=== PATIENT | male | born 1990 | race Caucasian/White ===

== ENCOUNTER 2017-02-20 23:30 | Emergency (ER) | payer BC ==
[~2017-02-20 23:30] MED LIST: NO MEDICATIONS; NORFLEX100 M1 PO
== END 2017-02-21 00:39 | disposition home or self-care (01) ==
LOC: SED 23:30
DX: S83.91XA Sprain of unspecified site of right knee, initial encounter (principal); W50.2XXA Accidental twist by another person, initial encounter; Y92.830 Public park as the place of occurrence of the external cause
CPT/HCPCS: 99283